=== PATIENT | female | born 1965 | race African-American/Black ===

== ENCOUNTER 2017-09-21 05:38 | Inpatient (IN) | payer SELFPAY ==
[2017-09-21] MEDS ORDERED: IPRATROPIUM/ALBUTEROL 0.5-2.5 MG/3 ML AMPUL NEB ONE ×3 (05:49)
[2017-09-21] MEDS ORDERED: METHYLPREDNISOLONE INJ 125 MG/2 ML SDV IV ONE (05:50)
[2017-09-21] MEDS ORDERED: MAGNESIUM SULFATE/D5W 1 GM/100 ML RTUPB IV PRN (05:50)
--- NOTE | 2017-09-21 05:52 | ER Document Report ---
ED Medical Screen (RME) - General Stated Complaint: SHORTNESS OF BREATH Time Seen by Provider: 09/21/17 05:45 Notes: Patient is a 52-year-old female that comes emergency department for chief complaint of difficulty breathing, symptoms have been worsening for the past 2 days, she comes by EMS, she reports wheezing, cough, tightness in her chest. Past medical history of COPD, she currently smokes, she has been using a home nebulizer without any change. She also has HIV, is taking her medications, reports her CD4 counts are good. She does have a history of pneumonia, was hospitalized last summer. Initial pulse oxygen saturation 88% on room air. TRAVEL OUTSIDE OF THE [place] IN LAST 30 DAYS: No - Related Data Allergies/Adverse Reactions: ibuprofen Allergy (Verified 03/07/16 10:14) Past Medical History Neurological Medical History: Denies: Hx Seizures Psychiatric Medical History: Denies: Hx Depression Past Surgical History: Reports: Hx Hysterectomy - Immunizations Hx Diphtheria, Pertussis, Tetanus Vaccination: No Physical Exam - Respiratory Respiratory status: Tachypnea - Mild. No: Labored, Retractions Breath sounds: Decreased air movement, Nonproductive cough, Wheezing Course - Re-evaluation Re-evalutation: Patient with tachypnea, wheezes, tight lung chicas. Beginning magnesium, Solu- Medrol, duo nebs, workup. Oxygenating well on 3 L, no significant distress.
[2017-09-21 06:18] LABS: VENOUS BLOOD BASE EXCESS 1.5 mmol/L; VENOUS BLOOD HCO3 29.5 mmol/L (20-32); VENOUS BLOOD PCO2 62.4 mmHg (35-63); VENOUS BLOOD PH 7.29 (7.30-7.42)
[2017-09-21 06:19] LABS: ABSOLUTE LYMPHOCYTES (AUTO) 1.7 10^3/uL (0.5-4.7); ABSOLUTE NEUT (AUTO) 10.3 10^3/uL (1.7-8.2); BASOPHILS % (AUTO) 0.2 % (0-2); EOSINOPHILS % (AUTO) 0.4 % (0-6); HEMOGLOBIN 11.8 g/dL (12.0-15.5); LYMPHOCYTES % (AUTO) 13.1 % (13-45); MEAN CORPUSCULAR HEMOGLOBIN 26.1 pg (27.0-33.4); MEAN CORPUSCULAR HGB CONC 31.2 g/dL (32.0-36.0); MEAN CORPUSCULAR VOLUME 84 fl (80-97); MONOCYTES % (AUTO) 7.6 % (3-13); PLATELET COUNT 199 10^3/uL (150-450); RED BLOOD COUNT 4.53 10^6/uL (3.72-5.28); SEGMENTED NEUTROPHILS % (AUTO) 78.7 % (42-78); TOTAL CELLS COUNTED % (AUTO) 100 %; WHITE BLOOD COUNT 13.1 10^3/uL (4.0-10.5)
--- NOTE | 2017-09-21 06:36 | RADIOLOGY REPORT (SQ) ---
EXAM DESCRIPTION: CHEST SINGLE VIEW CLINICAL HISTORY: 52 years, Female, SOB COMPARISON: 03/09/2016 NUMBER OF VIEWS: 1 TECHNIQUE: AP portable upright LIMITATIONS: None. FINDINGS: Mixed moderate airspace and mild interstitial opacity of mostly the mid and lower lung chicas, normal cardiac silhouette, and intact bony thorax. IMPRESSION: Moderate pulmonary edema pattern. Differential diagnosis includes multifocal pneumonia.
[2017-09-21] MEDS ORDERED: VANCOMYCIN HCL INJ 1000 MG VIAL IV ONE (06:45)
[2017-09-21] MEDS ORDERED: SULFAMETHOX/TRIMETH 800-160 MG/10 ML VIAL IV ONE (06:49)
[2017-09-21 07:03] LABS: APPEARANCE,URINE CLEAR; BILIRUBIN,URINE NEGATIVE (NEGATIVE); COLOR,URINE YELLOW; GLUCOSE, URINE NEGATIVE (NEGATIVE); KETONES,URINE NEGATIVE (NEGATIVE); LEUKOCYTE ESTERASE,URINE NEGATIVE (NEGATIVE); NITRITE,URINE NEGATIVE (NEGATIVE); PROTEIN,URINE NEGATIVE (NEGATIVE); URINE SPECIFIC GRAVITY 1.012; UROBILINOGEN,URINE NEGATIVE mg/dL (<2.0)
[2017-09-21] MEDS ORDERED: PIPERACILLIN/TAZOBACTAM 3.375 GM VIAL IV ONE ×2 (07:09→07:10)
--- NOTE | 2017-09-21 08:09 | ER Document Report ---
ED General - General Chief Complaint: Shortness Of Breath Stated Complaint: SHORTNESS OF BREATH Time Seen by Provider: 09/21/17 05:45 Information source: Patient, [facility] Records TRAVEL OUTSIDE OF THE [place] IN LAST 30 DAYS: No - HPI Patient complains to provider of: sob Onset: Other - 3 days ago Onset/Duration: Gradual, Worse Associated symptoms: Nonproductive cough, Shortness of breath Exacerbated by: Coughing Relieved by: Denies Similar symptoms previously: Yes - here for pneumonia03/15 Recently seen / treated by doctor: No - Related Data Allergies/Adverse Reactions: ibuprofen Allergy (Verified 03/07/16 10:14) Past Medical History - General Information source: Patient, [facility] Records - Social History Smoking Status: Former Smoker Chew tobacco use (# tins/day): No Frequency of alcohol use: Rare Drug Abuse: None Lives with: Family Family History: None Patient has suicidal ideation: No Patient has homicidal ideation: No - Past Medical History Cardiac Medical History: Reports: Hx Congestive Heart Failure Pulmonary Medical History: Reports: Hx COPD, Hx Pneumonia, Hx Intubation, Hx Respiratory Failure, Other - ARDS EENT Medical History: Reports: None Neurological Medical History: Reports: None. Denies: Hx Seizures Endocrine Medical History: Reports: Hx Diabetes Mellitus Type 1 Renal/ Medical History: Reports: Hx Renal Insufficiency. Denies: Hx Peritoneal Dialysis GI Medical History: Reports: None Musculoskeltal Medical History: Reports None Skin Medical History: Reports None Psychiatric Medical History: Reports: Hx Bipolar Disorder Denies: Hx Depression Traumatic Medical History: Reports: None Infectious Medical History: Reports: Hx HIV, Other - streptococcus pneumonia Past Surgical History: Reports: Hx Hysterectomy - Immunizations Hx Diphtheria, Pertussis, Tetanus Vaccination: No History of Influenza Vaccine for 05/2017 - 10/2017 Season: Yes Review of Systems - Review of Systems Constitutional: Chills, Malaise EENT: No symptoms reported Respiratory: See HPI Gastrointestinal: No symptoms reported Genitourinary: No symptoms reported Female Genitourinary: No symptoms reported Musculoskeletal: No symptoms reported Skin: No symptoms reported Hematologic/Lymphatic: No symptoms reported Neurological/Psychological: No symptoms reported Physical Exam - Vital signs Vitals: Pulse Ox 89 L 09/21/17 05:42 - Notes Notes: PHYSICAL EXAMINATION: GENERAL: Obese -[place] female lying in bed receiving a neb treatment in no acute distress. HEAD: Atraumatic, normocephalic. EYES: Pupils equal round and reactive to light, extraocular movements intact, conjunctiva are normal. ENT: Nares patent, oropharynx clear without exudates. Moist mucous membranes. NECK: Normal range of motion, supple without lymphadenopathy LUNGS: Bilateral basilar crackles with scant expiratory wheezing and rhonchi HEART: Regular rate and rhythm without murmurs ABDOMEN: Obese, soft, nontender, nondistended abdomen. No guarding, no rebound. No masses appreciated. Female : deferred Musculoskeletal: Normal range of motion, no pitting or edema. No cyanosis. NEUROLOGICAL: Cranial nerves grossly intact. Normal speech. Normal sensory, motor exams PSYCH: Normal mood, normal affect. SKIN: Warm, Dry, normal turgor, no rashes or lesions noted. Course - Re-evaluation Re-evalutation: 09/21/17 09:07 I did talk to the nurse taking care of the patient. Chemistries hemolyzed we are awaiting the lab draw so they can be repeated. Patient has been accepted I did talk to Dr. Pop and she told me to call nurse practitioner [place] which I did not she accepted the admission - Vital Signs Vital signs: Temp Pulse Resp BP Pulse Ox 98.9 F 17 170/93 H 96 09/21/17 09:04 09/21/17 09:03 09/21/17 09:03 09/21/17 09:03 - Laboratory Result Diagrams: 09/21/17 05:55 09/21/17 09:54 Laboratory results interpreted by me: 09/21/17 09/21/17 05:55 05:55 WBC 13.1 H Hgb 11.8 L MCH 26.1 L MCHC 31.2 L RDW 17.0 H Seg Neutrophils % 78.7 H Absolute Neutrophils 10.3 H VBG pH 7.29 L - Diagnostic Test Radiology reviewed: Image reviewed, Reports reviewed Radiology results interpreted by me: 09/21/17 09:03 Bilateral pneumonia - EKG Interpretation by [place] EKG shows normal: Sinus rhythm Rate: Normal When compared to previous EKG there are: No significant change Discharge - Discharge Clinical Impression: HIV (human immunodeficiency virus infection) Pneumonia Qualifiers: Pneumonia type: due to unspecified organism Laterality: unspecified laterality Lung location: unspecified part of lung Qualified Code(s): J18.9 - Pneumonia, unspecified organism Disposition: ADMITTED INPATIENT Admitting Provider: Hospitalist - [employer] [facility] Unit Admitted: Telemetry
[2017-09-21] MEDS ORDERED: IPRATROPIUM/ALBUTEROL 0.5-2.5 MG/3 ML AMPUL NEB PRN (08:15)
[2017-09-21] MEDS ORDERED: ACETAMINOPHEN 325 MG TABLET PO PRN (08:15)
[2017-09-21] MEDS ORDERED: VANCOMYCIN HCL 0 MG in DEXTROSE 5%-WATER 250 ML IV NR (08:30)
--- NOTE | 2017-09-21 08:52 | EKG REPORT ---
SEVERITY:- ABNORMAL ECG - SINUS RHYTHM ABNRM R PROG, CONSIDER ASMI OR LEAD PLACEMENT : Confirmed by: Daysi Souza 21-Sep-2017 08:51:25
[2017-09-21 09:05] LABS: A TYPE INFLUENZA AG NEGATIVE (NEGATIVE); B INFLUENZA AG NEGATIVE (NEGATIVE)
--- NOTE | 2017-09-21 09:26 | PDOC H&P ---
History of Present Illness Admission Date/PCP: 09/21/17 08:16 Patient complains of: Cough and increasing shortness of breath History of Present Illness: KHRIS LOJA is a 52 year old female Patient is as 52 year old female with past medical history of COPD on home oxygen, chronic diastolic congestive heart failure, sleep apnea, tobacco use, HIV with adequate CD4 counts, essential hypertension and morbid obesity; who presents to the ED with complaints of increasing shortness of breath, chills and cough over the last 3 days. She states she is here visiting family from [place] for her brother's . She reports other family members had upper respiratory symptoms and colds as well. Her symptoms began 3 days ago and have progressively worsened. She was hopeful that she would feel better after breathing treatments and would be able to go home. She is scheduled to leave tomorrow to go back to [place] on the bus. She states she did not bring her nebulizer treatments with her and she ran out of her Albuterol after she arrived here. Past Medical History Cardiac Medical History: Reports: Congestive Heart Failure Pulmonary Medical History: Reports: Chronic Obstructive Pulmonary Disease (COPD) , Intubation, Pneumonia, Respiratory Failure, Other - ARDS EENT Medical History: Reports: None Neurological Medical History: Reports: None Denies: Seizures Endocrine Medical History: Reports: Diabetes Mellitus Type 1 Malignancy Medical History: Reports: None GI Medical History: Reports: None Musculoskeltal Medical History: Reports: None Skin Medical History: Reports: None Psychiatric Medical History: Reports: Bipolar Disorder Denies: Depression Traumatic Medical History: Reports: None Infectious Medical History: Reports: HIV Past Surgical History Past Surgical History: Reports: Hysterectomy Social History Information Source: Patient Lives with: Family Smoking Status: Current Some Day Smoker Cigarettes Packs Per Day: 0.2 Number of Years Smokin Frequency of Alcohol Use: Rare Hx Recreational Drug Use: No Hx Prescription Drug Abuse: No - Advance Directive Resuscitation Status: Full Code Family History Family History: COPD, Hyperlipidemia, Hypertension Parental Family History Reviewed: Yes Children Family History Reviewed: Yes Sibling(s) Family History Reviewed.: Yes Medication/Allergy Home Medications: Abacavir Sulfate/Lamivudine [Epzicom Tablet] 1 tab PO DAILY 03/08/16 Albuterol Sulfate [Ventolin 0.083% Neb 2.5 mg/3 mL Ampul] 03/08/16 Aripiprazole 5 mg PO 03/08/16 Atazanavir Sulfate/Cobicistat [Evotaz 300 mg-150 mg Tablet] 1 tab PO DAILY 03/08 Escitalopram Oxalate 10 mg PO 03/08/16 Hydrochlorothiazide 12.5 mg PO 03/08/16 Risperidone 1 mg PO 03/08/16 Allergies/Adverse Reactions: ibuprofen Allergy (Verified 03/07/16 10:14) Review of Systems Constitutional: PRESENT: chills, fatigue, fever(s), headache(s), weakness Eyes: ABSENT: visual disturbances Ears: ABSENT: hearing changes Nose, Mouth, and Throat: PRESENT: sore throat Cardiovascular: PRESENT: dyspnea on exertion Respiratory: PRESENT: cough, dyspnea, sputum Gastrointestinal: ABSENT: abdominal pain, constipation, diarrhea, hematemesis, hematochezia, nausea, vomiting Genitourinary: ABSENT: dysuria, hematuria Musculoskeletal: PRESENT: back pain Integumentary: ABSENT: rash, wounds Neurological: ABSENT: abnormal gait, abnormal speech, confusion, dizziness, focal weakness, syncope Psychiatric: ABSENT: anxiety, depression, homidical ideation, suicidal ideation Endocrine: ABSENT: cold intolerance, heat intolerance, polydipsia, polyuria Hematologic/Lymphatic: ABSENT: easy bleeding, easy bruising Physical Exam Vital Signs: Temp Pulse Resp BP Pulse Ox 98.9 F 17 170/93 H 96 09/21/17 09:04 09/21/17 09:03 09/21/17 09:03 09/21/17 09:03 General appearance: PRESENT: no acute distress, morbidly obese, well-developed, well-nourished Head exam: PRESENT: atraumatic Eye exam: PRESENT: conjunctiva pink, EOMI, PERRLA. ABSENT: scleral icterus Ear exam: PRESENT: normal external ear exam Mouth exam: PRESENT: moist, tongue midline Respiratory exam: PRESENT: rhonchi - bilaterally, symmetrical, unlabored Cardiovascular exam: PRESENT: RRR. ABSENT: diastolic murmur, rubs, systolic murmur Pulses: PRESENT: normal dorsalis pedis pul GI/Abdominal exam: PRESENT: normal bowel sounds, soft. ABSENT: distended, guarding, mass, organolmegaly, rebound, tenderness Rectal exam: PRESENT: deferred Extremities exam: PRESENT: full ROM. ABSENT: calf tenderness, clubbing, pedal edema Neurological exam: PRESENT: alert, awake, oriented to person, oriented to place , oriented to time, oriented to situation, CN II-XII grossly intact. ABSENT: motor sensory deficit Psychiatric exam: PRESENT: appropriate affect, normal mood. ABSENT: homicidal ideation, suicidal ideation Skin exam: PRESENT: dry, intact, warm. ABSENT: cyanosis, rash Results Impressions: Chest X-Ray 09/21/17 05:41 IMPRESSION: Moderate pulmonary edema pattern. Differential diagnosis includes multifocal pneumonia. Assessment & Plan - Diagnosis (1) Pneumonia Qualifiers: Pneumonia type: due to unspecified organism Laterality: unspecified laterality Lung location: unspecified part of lung Qualified Code(s): J18.9 - Pneumonia, unspecified organism Is this a current diagnosis for this admission?: Yes Plan: Will continue broad spectrum antibiotics, pending sputum and blood cultures, IV solumedrol for bronchial inflammation and nebulizer treatments (2) COPD exacerbation Is this a current diagnosis for this admission?: Yes Plan: As above (3) HIV (human immunodeficiency virus infection) Is this a current diagnosis for this admission?: Yes Plan: Continue home medications (4) Tobacco abuse Is this a current diagnosis for this admission?: Yes Plan: Counseled (5) Morbid (severe) obesity due to excess calories Is this a current diagnosis for this admission?: Yes Plan: Counseled (6) Chronic diastolic heart failure Is this a current diagnosis for this admission?: Yes Plan: Patient is presently euvolemic at the present time (7) Sleep apnea Qualifiers: Sleep apnea type: unspecified type Qualified Code(s): G47.30 - Sleep apnea , unspecified Is this a current diagnosis for this admission?: Yes Plan: Patient has not been compliant with CPAP - Time Time Spent: 50 to 70 Minutes Critical Time spent with patient: 25-34 minutes Smoking Cessation Education: 3 to 10 minutes Medications reviewed and adjusted accordingly: Yes Anticipated discharge: Home Within: within 48 hours
[2017-09-21 10:26] LABS: ALANINE AMINOTRANSFERASE 29 U/L (9-52); ALBUMIN 4.3 g/dL (3.5-5.0); ALKALINE PHOSPHATASE 87 U/L (38-126); ANION GAP 10 (5-19); ASPARTATE AMINO TRANSFERASE 18 U/L (14-36); BILIRUBIN,DIRECT 0.3 mg/dL (0.0-0.4); BILIRUBIN,TOTAL 2.4 mg/dL (0.2-1.3); BLOOD UREA NITROGEN 14 mg/dL (7-20); CALCIUM 9.3 mg/dL (8.4-10.2); CARBON DIOXIDE 28 mmol/L (22-30); CHLORIDE 103 mmol/L (98-107); CREATINE KINASE 213 U/L (30-135); GLUCOSE 188 mg/dL (75-110); POTASSIUM 4.2 mmol/L (3.6-5.0); SODIUM 140.5 mmol/L (137-145); TOTAL PROTEIN 6.9 g/dL (6.3-8.2)
[2017-09-21] MEDS: FAMOTIDINE 20 MG TABLET PO SCH ×2 (11:22→21:15)
[2017-09-21] MEDS: GUAIFENESIN 600 MG TABLET.SA PO SCH ×2 (11:23→21:14)
[2017-09-21] MEDS: METHYLPREDNISOLONE INJ 40 MG/1 ML SDV IV SCH ×2 (13:51→21:14)
[2017-09-21] MEDS: IPRATROPIUM/ALBUTEROL 0.5-2.5 MG/3 ML AMPUL NEB SCH ×2 (13:52→19:49)
[2017-09-21] MEDS: LEVOFLOXACIN 500 MG/D5W RTU 500 MG/100 ML RTUPB IV SCH (15:45)
[2017-09-21] MEDS: CEFEPIME HCL 2 GM in DEXTROSE 5%-WATER 50 ML IV SCH (17:18)
[2017-09-21] MEDS ORDERED: ALBUTEROL SULFATE HFA (90 MCG/PUFF) 200 PUFF/8.5 GM MDI IH PRN (17:58)
[2017-09-21] MEDS ORDERED: CEFEPIME 2 GM/D5W RTU 50 ML IV SCH (18:00)
[2017-09-21] MEDS ORDERED: VANCOMYCIN HCL INJ 1000 MG VIAL ONE (21:20)
[2017-09-21] MEDS: VANCOMYCIN HCL 2,000 MG in DEXTROSE 5%-WATER 500 ML IV SCH (21:23)
[2017-09-22] MEDS ORDERED: CEFEPIME 2 GM/D5W RTU 2 GM/50 ML RTUPB IV ONE (05:28)
[2017-09-22] MEDS: OXYCODONE-ACETAMINOPHEN 5-325 MG TABLET PO PRN ×2 (05:41→22:25)
[2017-09-22] MEDS: METHYLPREDNISOLONE INJ 40 MG/1 ML SDV IV SCH ×3 (05:43→22:25)
[2017-09-22] MEDS: CEFEPIME HCL 2 GM in DEXTROSE 5%-WATER 50 ML IV SCH ×2 (06:12→15:06)
[2017-09-22 07:17] LABS: ABSOLUTE LYMPHOCYTES (AUTO) 0.8 10^3/uL (0.5-4.7); ABSOLUTE MONOCYTES (AUTO) 0.6 10^3/uL (0.1-1.4); BASOPHILS % (AUTO) 0.2 % (0-2); HEMATOCRIT 39.2 % (36.0-47.0); HEMOGLOBIN 12.2 g/dL (12.0-15.5); LYMPHOCYTES % (AUTO) 7.4 % (13-45); MEAN CORPUSCULAR HEMOGLOBIN 26.3 pg (27.0-33.4); MEAN CORPUSCULAR VOLUME 85 fl (80-97); MONOCYTES % (AUTO) 5.2 % (3-13); PLATELET COUNT 202 10^3/uL (150-450); RED BLOOD COUNT 4.62 10^6/uL (3.72-5.28); RED CELL DISTRIBUTION WIDTH 17.3 % (11.5-14.0); SEGMENTED NEUTROPHILS % (AUTO) 87.2 % (42-78); TOTAL CELLS COUNTED % (AUTO) 100 %; WHITE BLOOD COUNT 11.4 10^3/uL (4.0-10.5)
[2017-09-22 07:40] LABS: ALBUMIN 4.6 g/dL (3.5-5.0); ANION GAP 10 (5-19); BLOOD UREA NITROGEN 18 mg/dL (7-20); CALCIUM 9.6 mg/dL (8.4-10.2); CARBON DIOXIDE 28 mmol/L (22-30); CHLORIDE 102 mmol/L (98-107); GLUCOSE 149 mg/dL (75-110); SODIUM 140.1 mmol/L (137-145); TOTAL PROTEIN 7.4 g/dL (6.3-8.2)
[2017-09-22 07:41] LABS: ALANINE AMINOTRANSFERASE 31 U/L (9-52); ALKALINE PHOSPHATASE 86 U/L (38-126); ASPARTATE AMINO TRANSFERASE 15 U/L (14-36); BILIRUBIN,DIRECT 0.4 mg/dL (0.0-0.4); BILIRUBIN,TOTAL 0.6 mg/dL (0.2-1.3)
[2017-09-22 07:45] LABS: POTASSIUM 5.2 mmol/L (3.6-5.0)
[2017-09-22] MEDS: IPRATROPIUM/ALBUTEROL 0.5-2.5 MG/3 ML AMPUL NEB SCH ×3 (08:31→21:02)
[2017-09-22] MEDS ORDERED: HYDRALAZINE HCL INJ/PF 20 MG/1 ML SDV IV PRN (08:53)
[2017-09-22] MEDS ORDERED: CEFEPIME HCL 2 GM in DEXTROSE 5%-WATER 50 ML IV SCH (10:00)
[2017-09-22] MEDS ORDERED: LISINOPRIL 10 MG TABLET PO SCH (10:00)
[2017-09-22] MEDS: FAMOTIDINE 20 MG TABLET PO SCH ×2 (10:24→22:24)
[2017-09-22] MEDS: AMLODIPINE BESYLATE 10 MG TABLET PO SCH (10:24)
[2017-09-22] MEDS: VANCOMYCIN HCL 2,000 MG in DEXTROSE 5%-WATER 500 ML IV SCH ×2 (10:27→22:25)
[2017-09-22] MEDS: GUAIFENESIN 600 MG TABLET.SA PO SCH ×2 (10:27→22:25)
[2017-09-22] MEDS: ENOXAPARIN SODIUM INJ 40 MG/0.4 ML DISP.SYRIN SUBCUT SCH (10:33)
[2017-09-22] MEDS: LEVOFLOXACIN 500 MG/D5W RTU 500 MG/100 ML RTUPB IV SCH (14:16)
--- NOTE | 2017-09-22 16:04 | PDOC PROGRESS REPORT ---
Subjective Progress Note for:: 09/22/17 Subjective:: Patient reports that feels better and wonders where is her asthma inhaler. She is also concerned about her breakfast Review of systems All organ systems evaluated and negative except as in subjective All significant laboratories and diagnostics have been reviewed Reason For Visit: PNEUMONIA Physical Exam Vital Signs: Temp Pulse Resp BP Pulse Ox 98.5 F 72 18 144/94 H 96 09/22/17 13:28 09/22/17 14:16 09/22/17 14:16 09/22/17 13:28 09/22/17 13:28 Intake & Output 09/21/17 09/22/17 09/23/17 06:59 06:59 06:59 Intake Total 1970 Balance 1970 Weight 136 kg General appearance: PRESENT: no acute distress, cooperative, morbidly obese Head exam: PRESENT: atraumatic, normocephalic Eye exam: PRESENT: conjunctiva pink, EOMI. ABSENT: periorbital swelling Ear exam: PRESENT: normal external ear exam, TM's normal bilaterally Mouth exam: PRESENT: moist, neck supple Neck exam: PRESENT: full ROM. ABSENT: JVD, lymphadenopathy, tenderness Respiratory exam: PRESENT: clear to auscultation wilmar. ABSENT: tachypnea, unlabored, wheezes Cardiovascular exam: PRESENT: RRR. ABSENT: diastolic murmur, systolic murmur Vascular exam: PRESENT: normal capillary refill GI/Abdominal exam: PRESENT: normal bowel sounds, soft. ABSENT: tenderness Extremities exam: PRESENT: full ROM. ABSENT: clubbing, joint swelling, pedal edema Musculoskeletal exam: PRESENT: ambulatory. ABSENT: full ROM Neurological exam: PRESENT: alert, awake, oriented to person, oriented to place , oriented to time, oriented to situation, CN II-XII grossly intact Psychiatric exam: PRESENT: appropriate affect, normal mood Skin exam: PRESENT: intact, normal color Results Laboratory Results: 09/22/17 06:53 09/22/17 06:53 09/22/17 09/22/17 06:53 06:53 WBC 11.4 H RBC 4.62 Hgb 12.2 Hct 39.2 MCV 85 MCH 26.3 L MCHC 31.0 L RDW 17.3 H Plt Count 202 Seg Neutrophils % 87.2 H Lymphocytes % 7.4 L Monocytes % 5.2 Eosinophils % 0.0 Basophils % 0.2 Absolute Neutrophils 10.0 H Absolute Lymphocytes 0.8 Absolute Monocytes 0.6 Absolute Eosinophils 0.0 Absolute Basophils 0.0 Sodium 140.1 Potassium 5.2 H D Chloride 102 Carbon Dioxide 28 Anion Gap 10 BUN 18 Creatinine 0.90 Est GFR ( Amer) > 60 Est GFR (Non-Af Amer) > 60 Glucose 149 H Calcium 9.6 Total Bilirubin 0.6 AST 15 ALT 31 Alkaline Phosphatase 86 Total Protein 7.4 Albumin 4.6 09/21/17 09/21/17 09:54 09:54 Creatine Kinase 213 H Troponin I < 0.012 Impressions: Chest X-Ray 09/21/17 05:41 IMPRESSION: Moderate pulmonary edema pattern. Differential diagnosis includes multifocal pneumonia. Assessment & Plan - Diagnosis (1) Chronic diastolic heart failure Is this a current diagnosis for this admission?: Yes Plan: Continue current management (2) HIV (human immunodeficiency virus infection) Is this a current diagnosis for this admission?: Yes Plan: Continue current management (3) Sleep apnea Qualifiers: Sleep apnea type: unspecified type Qualified Code(s): G47.30 - Sleep apnea , unspecified Is this a current diagnosis for this admission?: Yes Plan: Encourage use of CPAP and likely culprit of presentation (4) Tobacco abuse Is this a current diagnosis for this admission?: Yes Plan: Had been educated to quit (5) COPD exacerbation Is this a current diagnosis for this admission?: Yes Plan: Continue current management (6) Hyperkalemia, diminished renal excretion Is this a current diagnosis for this admission?: Yes Plan: Stop lisinopril and order Kayexalate. Trend BMP - Time Time Spent with patient: 15-24 minutes Medications reviewed and adjusted accordingly: Yes Anticipated discharge: Home Within: within 48 hours - Inpatient Certification Based on my medical assessment, after consideration of the patient's comorbidities, presenting symptoms, or acuity I expect that the services needed warrant INPATIENT care.: Yes I certify that my determination is in accordance with my understanding of Medicare's requirements for reasonable and necessary INPATIENT services [42 CFR 412.3e].: Yes Medical Necessity: Significant Comorbidiites Make Outpatient Treatment Too Risky , Need for Nebulizer Therapy and Monitoring of Response
[2017-09-22] MEDS ORDERED: SODIUM POLYSTYRENE SULFONATE 15 GM/60 ML PO ONE (17:00)
[2017-09-23] MEDS: CEFEPIME HCL 2 GM in DEXTROSE 5%-WATER 50 ML IV SCH (03:36)
[2017-09-23 04:33] LABS: ANION GAP 9 (5-19); BLOOD UREA NITROGEN 27 mg/dL (7-20); CALCIUM 9.1 mg/dL (8.4-10.2); CARBON DIOXIDE 29 mmol/L (22-30); CHLORIDE 101 mmol/L (98-107); GLUCOSE 185 mg/dL (75-110); POTASSIUM 4.9 mmol/L (3.6-5.0); SODIUM 138.9 mmol/L (137-145)
[2017-09-23] MEDS: METHYLPREDNISOLONE INJ 40 MG/1 ML SDV IV SCH (06:15)
[2017-09-23] MEDS: IPRATROPIUM/ALBUTEROL 0.5-2.5 MG/3 ML AMPUL NEB SCH (07:48)
[2017-09-23] MEDS: GUAIFENESIN 600 MG TABLET.SA PO SCH ×2 (11:05→21:53)
[2017-09-23] MEDS: FAMOTIDINE 20 MG TABLET PO SCH ×2 (11:05→21:55)
[2017-09-23] MEDS: AMLODIPINE BESYLATE 10 MG TABLET PO SCH (11:05)
[2017-09-23] MEDS: ENOXAPARIN SODIUM INJ 40 MG/0.4 ML DISP.SYRIN SUBCUT SCH (11:06)
[2017-09-23 11:40] LABS: VANCOMYCIN,TROUGH 14.3 ug/mL (5.0-20.0)
[2017-09-23] MEDS: VANCOMYCIN HCL 2,000 MG in DEXTROSE 5%-WATER 500 ML IV SCH (12:27)
[2017-09-23] MEDS ORDERED: (PENDING PHARMACY ID) (Tizanidine Hcl [Zanaflex] 2 MG) PO PRN (13:01)
[2017-09-23] MEDS ORDERED: IBUPROFEN 800 MG TABLET PO PRN (13:01)
[2017-09-23] MEDS ORDERED: ATAZANAVIR SULFATE PO SCH (13:15)
[2017-09-23] MEDS ORDERED: [UNRECOGNIZED DRUG - OTHER] PO SCH (13:15)
[2017-09-23] MEDS ORDERED: (PENDING PHARMACY ID) (Aripiprazole [Abilify 15 Mg Tablet] 15 MG) PO SCH ×2 (13:15→15:00)
[2017-09-23] MEDS ORDERED: COBICISTAT PO SCH (13:15)
[2017-09-23] MEDS ORDERED: LAMIVUDINE PO SCH (13:15)
[2017-09-23] MEDS ORDERED: ALBUTEROL SULFATE HFA (90 MCG/PUFF) 200 PUFF/8.5 GM MDI IH PRN (13:15)
[2017-09-23] MEDS ORDERED: ABACAVIR SULFATE PO SCH (13:15)
[2017-09-23] MEDS ORDERED: LEVALBUTEROL HCL NEB 1.25 MG/3 ML AMPUL NEB PRN (13:24)
--- NOTE | 2017-09-23 13:44 | PROGRESS NOTE E ---
Progress Note NAME: KHRIS LOJA : 1965 AGE: 52Y DATE: 09/23/2017 ROOM: 537 SUBJECTIVE: The patient is currently lying in bed. The patient states that she does feel somewhat better in comparison to yesterday. The patient admits to a cough, but has not been producing any sputum. The patient states that it is dry and hacky. The patient denies any nausea, vomiting. There has been no diarrhea. No shortness of breath, dizziness, or chest pain. The patient states that the only time she gets short of breath is with activity. The patient has been afebrile. Her blood pressure has been in a good range and the patient does not voice any other concerns at this time. REVIEW OF SYSTEMS: Rest of review of systems is negative. MEDICATIONS: Medications have been reviewed. OBJECTIVE: GENERAL: The patient is a 52-year-old -Citizen Of [place] female who is awake, alert, and oriented to person, place, time, and situation. She is verbal, conversational, does not appear to be distressed. VITAL SIGNS: Temperature is 98.6, pulse 70, respirations 16, blood pressure 139/65, oxygen saturation 94% on 2 L nasal cannula. SKIN: Warm and dry. No rash. She is not diaphoretic. HEENT: Pupils equal, round, reactive to light and accommodation. Conjunctiva is pink. There is no evidence of JVP. CARDIOVASCULAR SYSTEM: Heart is regular. There is no murmur or rub. CHEST: Clear, symmetrical, unlabored. ABDOMEN: Obese, soft. Bowel sounds present. EXTREMITIES: No clubbing, cyanosis, edema. PSYCHIATRIC: Appropriate affect, pleasant mood. DIAGNOSTICS: Lab values are as follows: Hematology obtained on 09/22/2017: WBC is 11.4, hemoglobin is 12.2, hematocrit is 39.2, platelet count is 202,000. Chemistry obtained on 09/23/2017: Sodium is 138, potassium 4.9, chloride is 101, carbon dioxide 29, BUN 27, creatinine is 1, glucose 185, calcium is 9.1. IMPRESSION AND PLAN: 1. CHRONIC OBSTRUCTIVE PULMONARY DISEASE EXACERBATION. Will transition over to oral steroids additionally. Will add Singulair. Will continue home inhalers and p.r.n. nebs and follow. 2. CHRONIC DIASTOLIC DYSFUNCTION. Will continue the patient's current management. 3. HIV. Will continue the patient's home medications. 4. OBSTRUCTIVE SLEEP APNEA. Will encourage CPAP. 5. TOBACCO DEPENDENCY. Will continue p.r.n. nicotine patch. 6. HYPERKALEMIA. The patient's EZEQUIEL was actually stopped. 7. MORBID OBESITY WITH A BMI OF 47. Will encourage weight reduction. 8. MULTIFOCAL PNEUMONIA. The patient has had dramatic improvement in respiratory function. Will transition to oral antibiotics. 9. ACUTE ON CHRONIC HYPOXEMIC RESPIRATORY FAILURE. Will obtain ambulating O2 saturations. DISPOSITION: The patient is a FULL CODE. Pending patient's symptomatology and diagnostic findings, will re-evaluate in the a.m. for possible discharge. The patient can be downgraded to a medical bed. Time spent on this followup including assessment, plan, physical examination, patient education, review of records is 25 minutes. DICTATING PHYSICIAN: ANGIE ZHANG NP [id number] PHY#: [id number] ID: [id number] JOB#: [id number] ACCT: [id number] cc: >
[2017-09-23] MEDS ORDERED: VALACYCLOVIR HCL 500 MG TABLET PO ONE (14:00)
[2017-09-23] MEDS ORDERED: TIZANIDINE HCL 4 MG TABLET PO PRN (14:42)
[2017-09-23] MEDS ORDERED: LEVOFLOXACIN 500 MG TABLET PO SCH (15:00)
[2017-09-23] MEDS ORDERED: ARIPIPRAZOLE 5 MG TABLET PO ONE (15:00)
[2017-09-23] MEDS ORDERED: SALMETEROL IH SCH (18:00)
[2017-09-23] MEDS ORDERED: FLUTICASONE IH SCH (18:00)
[2017-09-23] MEDS: BUDESONIDE/FORMOTEROL 80-4.5 MCG 60 PUFF/6.9 GM MDI IH SCH (18:49)
[2017-09-23] MEDS: PREDNISONE 20 MG TABLET PO SCH (18:50)
[2017-09-23] MEDS: DOXYCYCLINE HYCLATE 100 MG TABLET PO SCH (21:54)
[2017-09-23] MEDS: OXYCODONE-ACETAMINOPHEN 5-325 MG TABLET PO PRN (21:56)
[2017-09-23] MEDS: VALACYCLOVIR HCL 500 MG TABLET PO SCH (21:56)
[2017-09-23] MEDS ORDERED: MONTELUKAST SODIUM 10 MG TABLET PO SCH (22:00)
[2017-09-24] MEDS ORDERED: INSULIN REG, HUMAN 100 UNIT/ML 3 ML VIAL (PYX) SUBCUT ONE (00:30)
[2017-09-24] MEDS ORDERED: HYDROCHLOROTHIAZIDE 12.5 MG CAPSULE PO SCH (10:00)
[2017-09-24] MEDS ORDERED: ARIPIPRAZOLE 5 MG TABLET PO SCH (10:00)
[2017-09-24] MEDS: DOXYCYCLINE HYCLATE 100 MG TABLET PO SCH (10:13)
[2017-09-24] MEDS: GUAIFENESIN 600 MG TABLET.SA PO SCH (10:14)
[2017-09-24] MEDS: FAMOTIDINE 20 MG TABLET PO SCH (10:14)
[2017-09-24] MEDS: ENOXAPARIN SODIUM INJ 40 MG/0.4 ML DISP.SYRIN SUBCUT SCH (10:22)
[2017-09-24] MEDS: AMLODIPINE BESYLATE 10 MG TABLET PO SCH (10:22)
[2017-09-24] MEDS: PREDNISONE 20 MG TABLET PO SCH ×2 (10:22→11:17)
[2017-09-24] MEDS: OXYCODONE-ACETAMINOPHEN 5-325 MG TABLET PO PRN (10:46)
[2017-09-24] MEDS: BUDESONIDE/FORMOTEROL 80-4.5 MCG 60 PUFF/6.9 GM MDI IH SCH (10:47)
[2017-09-24] MEDS: VALACYCLOVIR HCL 500 MG TABLET PO SCH (10:51)
[2017-09-24 11:05] VITALS: BP 147/79
--- NOTE | 2017-09-24 11:39 | DISCHARGE SUMMARY E ---
Discharge Summary NAME: KHRIS LOJA : 1965 AGE: 52Y ADMITTED: 09/21/2017 DISCHARGED: 09/24/2017 CODE STATUS: FULL CODE. PRIMARY CARE PROVIDER: Dr. Cedeno in [place], [place] CONDITION: Good. DISCHARGE DIAGNOSIS: Includes: 1. Community-acquired pneumonia. 2. Chronic obstructive pulmonary disease exacerbation. 3. Acute on chronic hypoxemic respiratory failure secondary to the above which is resolved. 4. Chronic diastolic dysfunction. 5. Human immunodeficiency virus. 6. Tobacco dependency, continuous. 7. Hyperkalemia, improved. 8. Morbid obesity with a body mass index of 47. 9. Hypertension. 10. High suspicion for obstructive sleep apnea. DISCHARGE MEDICATIONS: 1. Prednisone 60 mg taper. 2. Doxycycline 100 mg p.o. q.12 hours 10 tablets, 0 refills. 3. Norvasc 10 mg p.o. daily, 30 tablets, 0 refills. 4. Valacyclovir 500 mg p.o. b.i.d. 5. Zanaflex 2 mg p.o. q.8 hours. 6. Ibuprofen 800 mg p.o. q.8 hours p.r.n. 7. Hydrochlorothiazide 12.5 mg p.o. daily. 8. Advair HFA 1 puff inhalation b.i.d. 9. Symbicort 2 puffs inhalation b.i.d. 10. Advair HFA 230/21 1 puff inhalation b.i.d. 11. Evotaz 300/150 1 tablet p.o. daily. 12. Abilify 15 mg p.o. daily. 13. Ventolin HFA 2 puffs inhalation q.4 hours p.r.n. 14. Epzicom 1 tablet p.o. daily. DIET: Reduced calorie, heart healthy. ACTIVITY: Recommend 30 to 45 minutes of cardiovascular activity most days of the week. DIAGNOSTICS: Lab values are as follows: Hematology obtained on 09/22/2017: WBCs 11.4, hematocrit 12.12, hematocrit 39.2, platelet count 202,000. Venous blood gas obtained on 09/21/2017: The pH is 7.29, pCO2 62.4, bicarb 29.5. Chemistry obtained on 09/23/2017: Sodium 138, potassium 4.9, chloride 101, carbon dioxide 29, BUN 27, creatinine 1.01, glucose 185. Lactic acid is 1.5. Calcium is 9.1. Bilirubin 0.6. AST 15, ALT 31, alkaline phosphatase 86. CK 213, troponin 0.012, total protein 7.4, albumin 4.6. Urinalysis obtained on 09/21/2017: Color - yellow, appearance - clear, pH 5.0, specific gravity 1.012, protein negative, glucose negative, ketones negative, occult blood negative, nitrites negative, bilirubin negative, urobilinogens negative. Leukocyte esterase is negative. WBCs 0, RBCs 0, epithelial squamous cells less than 1. Mucus for ascorbic acid is negative. Vancomycin trough obtained on 09/23/2017 is 14.3. Serologies obtained on 09/21/2017: Influenza A and B are negative. Blood cultures obtained on 09/21/2017 revealed no growth. Urine culture obtained on 09/21/2017 revealed no growth. Chest x-ray obtained on 09/21/2017 reveals findings consistent with a multifocal pneumonia. EKG obtained on 09/21/2017 reveals sinus rhythm. PHYSICAL EXAMINATION: GENERAL: On examination, the patient is a morbidly obese, 52-year-old, -[place] female who is awake and alert. She is oriented to person, place, time and situation. She is verbal, conversational. She is delayed cognitively. She does not appear to be distressed. VITAL SIGNS: As follows: Temperature is 98.4, pulse 82, respirations 16, blood pressure 139/69, oxygen saturation 96% on room air. SKIN: Warm and dry. No rash. She is not diaphoretic. HEENT: Pupils were equal, round and reactive to light and accommodation. Conjunctivae pink. There is no evidence of JVP. CARDIOVASCULAR SYSTEM: Heart is regular. There is no murmur or rub. CHEST: Clear, symmetrical, unlabored. ABDOMEN: Soft, nontender, nondistended. BACK: No CVA tenderness or sacral edema. EXTREMITIES: No clubbing, cyanosis, or edema. PSYCHIATRIC: The patient does have a childlike affect. HISTORY OF PRESENT ILLNESS: The patient is a 52-year-old, -[place] female with a past medical history of human immunodeficiency virus and chronic obstructive pulmonary disease. The patient presented to the emergency department with a chief complaint of cough and increasing shortness of breath. The patient apparently had adequate CD-4 counts on her last visit and reportedly takes her antivirals appropriately as the patient is able to recite what she takes and how often. The patient presented to the ED with also chills and a cough which developed after coming to the area to visit her family for her brother's . The patient is from [place], [place]. The patient reports that other family members had upper respiratory infection and what she described as "colds." The patient was hopeful that she would feel better after her breathing treatments in the emergency room and would be able to go home, but chest imaging was suggestive of pneumonia. The patient remained increasingly dyspneic, but not particularly hypoxic, in the emergency department. Given these findings, the patient was referred to the hospitalist for admission and management. HOSPITAL COURSE: The patient was admitted to the Continuous Telemetry Unit. Initially, the patient was found to have oxygen saturations on the first evening of 88 and required supplemental O2. This was supplemented. The patient was started on steroids as well as broad-spectrum antibiotic coverage. The patient received 3 days of coverage and was transitioned to oral doxycycline which she tolerated. The patient was also transitioned over to oral prednisone. The patient denies any nausea, vomiting, or diarrhea. No dizziness. The patient's ambulating O2 sat as well as resting O2 sat at no point dropped below 92% after her first 24 hours of treatment. Additionally, to relieve the patient's anxieties, the patient was transitioned to room air and was kept on a continuous pulse oximetry which remained above 93 consistently. Given the patient's body habitus, I do have a high suspicion for obstructive sleep apnea as the patient does have daytime sleepiness, as well. I recommend the patient follow up for outpatient sleep study upon her return home to [place] with her primary care provider. 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 DISCHARGE PLAN: The patient is to follow up with her primary care provider within 1 to 2 weeks for hospital followup. Again, I encouraged the patient to inquire about overnight sleep study as I do have a high suspicion of sleep apnea. TIME SPENT: On this discharge, including assessment, plan, physical examination, patient education, and review of records, is 25 minutes. DICTATING PHYSICIAN: ANGIE ZHANG NP [id number] RYLANY#: [id number] ID: [id number] JOB#: [id number] ACCT: [id number] cc:Evan SHER NP > MTDD
== END 2017-09-24 13:30 | disposition home or self-care (01) | DRG 974 ==
LOC: ER 05:38 → EH 08:16 → 5 22:24
PROVIDERS: ADMIT Internal Medicine; ATTEND Internal Medicine
PROC: 5A09357 Assistance with Respiratory Ventilation, Less than 24 Consecutive Hours, Continuous Positive Airway Pressure (ICD-10-PCS; principal; 2017-09-21)
DX: J18.9 Pneumonia, unspecified organism (principal); B20 Human immunodeficiency virus [HIV] disease; J96.21 Acute and chronic respiratory failure with hypoxia; J44.1 Chronic obstructive pulmonary disease with (acute) exacerbation; J44.0 Chronic obstructive pulmonary disease with (acute) lower respiratory infection; I50.32 Chronic diastolic (congestive) heart failure; Z68.42 Body mass index [BMI] 45.0-49.9, adult; I11.0 Hypertensive heart disease with heart failure; G47.33 Obstructive sleep apnea (adult) (pediatric); E66.01 Morbid (severe) obesity due to excess calories; Z79.51 Long term (current) use of inhaled steroids; E10.8 Type 1 diabetes mellitus with unspecified complications; F31.9 Bipolar disorder, unspecified; F17.210 Nicotine dependence, cigarettes, uncomplicated; E87.5 Hyperkalemia; Z79.899 Other long term (current) drug therapy; Z88.6 Allergy status to analgesic agent; Z87.891 Personal history of nicotine dependence; Z99.81 Dependence on supplemental oxygen; Z82.49 Family history of ischemic heart disease and other diseases of the circulatory system; Z90.710 Acquired absence of both cervix and uterus
CPT/HCPCS: 36415; 71045; 80048; 80053; 80202; 81001; 82550; 82565; 82803; 83605; 84484; 85025; 87040; 87086; 87804; 93005; 93010; 94640; 94762; 96365; 96367; 96375; 99285; J0360; J0692; J1956; J2543; J2920; J2930; J3370; J3475; J3490; J7060; J7512; J7620